=== PATIENT | male | born 1940 | race Two or more races ===

== ENCOUNTER 2022-04-05 22:46 | Emergency (ER) | payer MEDICAID, OTHER ==
[~2022-04-05] VITALS: Ht 167.6 cm; Wt 74.8 kg
--- NOTE | 2022-04-05 23:03 | NUR ---
BIBRA FOR HTN. PT HAS HX OF HTN WITH MEDICATION NON-COMPLIENCE. DAUGHTER ENDORSES HE TOOK PRESCRIBED CLONODINE 1HR CONDUCTOR SLEEPING CAR. PT AWAKE AND ALERT X4 BREATHING UNLABORED. PLACED ON MONITOR AND NOTED HYPERTENSIVE. MADE AWARE.
[2022-04-05 23:31] LABS: CREATININE 0.6 mg/dL (0.6-1.3); POTASSIUM 3.6 mmol/L (3.5-5.1)
--- NOTE | 2022-04-06 02:00 | NUR ---
Patient discharged to home in stable condition. Written and verbal after care instructions given. Patient verbalizes understanding of instruction.IV removed. Catheter intact and site benign. Pressure and 4x4 applied to site. No bleeding noted. Pt ambulatory with a steady gait
--- NOTE | 2022-04-06 02:00 | NUR ---
md is aware of pt's elevated bp. no further treatment necessary per MD as of this time.
[2022-04-06 02:01] VITALS: BP 207/105
--- NOTE | 2022-04-06 02:05 | NUR ---
at bedside talking to pt's family
== END 2022-04-06 02:06 | disposition home or self-care (01) ==
LOC: ER 22:48
DX: I10 Essential (primary) hypertension (principal); R51.9 Headache, unspecified
CPT/HCPCS: 36415; 70450-TC; 80048-TC; 84484-TC